=== PATIENT | male | born 1985 | race African-American/Black ===

== ENCOUNTER 2018-10-07 09:48 | Emergency (ER) | payer SELFPAY ==
[~2018-10-07] VITALS: Ht 180.3 cm; Wt 86.2 kg
--- NOTE | 2018-10-07 10:14 | PHYS DOC ---
Past History Past Medical History: No Pertinent History Past Surgical History: No Surgical History Smoking: Cigarettes, Greater than 1 pack/day Drug Use: None Adult General Chief Complaint Chief Complaint: ACCIDENTAL INGESTION HPI HPI Patient is a 33-year-old male presents after "accidentally" drinking what he believes may have been radiator fluid. He thought it was water. He also took some unknown medicines. History is limited from the patient due to his sleepiness. He denies this being a suicide attempt. He is uncertain as to what these medicines are, when he took them, or who they belong to. Nothing makes symptoms better or worse. No chest pain or difficulty breathing, no pain with urination. No flank pain[] Review of Systems Review of Systems Constitutional: Denies fever or chills [] Eyes: Denies change in visual acuity, redness, or eye pain [] HENT: Denies nasal congestion or sore throat [] Respiratory: Denies cough or shortness of breath [] Cardiovascular: No chest pain or palpitations[] GI: Denies abdominal pain, nausea, vomiting, bloody stools or diarrhea [] : Denies dysuria or hematuria [] Musculoskeletal: Denies back pain or joint pain [] Integument: Denies rash or skin lesions [] Neurologic: Denies headache, focal weakness or sensory changes [] Endocrine: Denies polyuria or polydipsia [] All other systems were reviewed and found to be within normal limits, except as documented in this note. Physical Exam Physical Exam Constitutional: Well developed, well nourished, no acute distress, non-toxic appearance. [] HENT: Normocephalic, atraumatic, bilateral external ears normal, oropharynx moist, no oral exudates, nose normal. [] Eyes: PERRLA, EOMI, conjunctiva normal, no discharge. [] Neck: Normal range of motion, no tenderness, supple, no stridor. [] Cardiovascular:Heart rate regular rhythm, no murmur [] Lungs & Thorax: Bilateral breath sounds clear to auscultation [] Abdomen: Bowel sounds normal, soft, no tenderness, no masses, no pulsatile masses. [] Skin: Warm, dry, no erythema, no rash. [] Back: No tenderness, no CVA tenderness. [] Extremities: No tenderness, no cyanosis, no clubbing, ROM intact, no edema. [] Neurologic: Somnolent, normal motor function, normal sensory function, no focal deficits noted. [] Psychologic: Flat affect[] EKG EKG [] Radiology/Procedures Radiology/Procedures [] Course & Med Decision Making Course & Med Decision Making Pertinent Labs and Imaging studies reviewed. (See chart for details) ED course: Patient arrived, was placed in bed, and tolerated exam well. He became or weight during the emergency department stay. He was able to provide a urine sample which did not fluoresce under Wood's lamp. Received a phone call from the emergency physician at [facility] who saw the patient yesterday. Patient was brought in by EMS after being found on the ground at his sister's place. He perked up with some Narcan however was initially nonverbal but responding appropriately with head shaking and nodding. He had CT scan of head C-spine chest abdomen and pelvis that were all negative. Urine toxicology screen by report showed cocaine. His laboratory testing was essentially normal aside from a creatinine of 1.4 which on their review of records showed that was where his baseline was. He was initially admitted for further evaluation and treatment but left AGAINST MEDICAL ADVICE from [facility] at 1640 yesterday. After receiving this information, Patient continued to deny any suicidal or homicidal ideation. He requested to leave AGAINST MEDICAL ADVICE. He was informed of the risks of leaving to include or permanent disability. He was able to state the risks in his own words. He appears able to make an informed decision. He left AGAINST MEDICAL ADVICE. Medical decision making: Patient with substance abuse issues by history, no evidence of self-harm or harm of others ideation or attempt. No evidence of r adiator fluid ingestion. Patient appears able to make an informed decision and so was released as noted above.[] Dragon Disclaimer Dragon Disclaimer This electronic medical record was generated, in whole or in part, using a voice recognition dictation system. Departure Departure: Impression: Primary Impression: Drug abuse Disposition: 07 AGAINST MEDICAL ADVICE Condition: IMPROVED Referrals: PCP,GALEN (PCP) YUE ARZATE DO Oct 07, 2018 10:14
[2018-10-07] MEDS ORDERED: MVI, ADULT NO.4 WITH VIT K 10 ML, FOLIC ACID SYRINGE for ER 1 MG, THIAMINE INJ 100 MG i... IV SCH ×4 (10:15)
[2018-10-07 10:24] VITALS: BP 140/87
[2018-10-07 10:29] LABS: BASO # 0.1 x10^3/uL (0.0-0.2); BASO % 2 % (0-3); EOS # 0.1 x10^3/uL (0.0-0.7); EOS % 1 % (0-3); HEMOGLOBIN 14.1 g/dL (13.0-17.5); LYMPH # 1.7 x10^3/uL (1.0-4.8); LYMPH % 37 % (24-48); MEAN CORPUSCULAR HEMOGLOBIN 26 pg (25-35); MEAN CORPUSCULAR HGB CONC 34 g/dL (31-37); MEAN CORPUSCULAR VOLUME 76 fL (79-100); MONO # 0.6 x10^3/uL (0.0-1.1); MONO % 13 % (0-9); NEUT # 2.2 x10^3uL (1.8-7.7); NEUT % 47 % (31-73); PLATELET COUNT 246 x10^3/uL (140-400); RED BLOOD COUNT 5.42 x10^6/uL (4.30-5.70); RED CELL DISTRIBUTION WIDTH 13.5 % (11.5-14.5); WHITE BLOOD COUNT 4.7 x10^3/uL (4.0-11.0)
--- NOTE | 2018-10-07 10:37 | RAD ---
PORTABLE CHEST 1V History: Intoxication. Accidental ingestion of antifreeze. Comparison with March 01, 2009 image but report not available. Findings: Heart size is enlarged. No pneumothorax or effusion. Mild basilar markings may represent atelectasis. Bones appear intact. IMPRESSION: Mild markings in both lung bases. Likely represents atelectasis. Mild infiltrate or aspiration is difficult to exclude. Consider short-term follow-up PA and lateral chest x-ray. Electronically signed by: Tiago Gustafson MD (10/07/2018 10:34 AM) [id number]
[2018-10-07 10:41] LABS: ALBUMIN 3.3 g/dL (3.4-5.0); CALCIUM 9.4 mg/dL (8.5-10.1); CREATININE 1.4 mg/dL (0.7-1.3); DIRECT BILIRUBIN 0.1 mg/dL (0.0-0.2); GFR 70.6; MAGNESIUM 1.8 mg/dL (1.8-2.4); POTASSIUM 3.8 mmol/L (3.5-5.1); TOTAL BILIRUBIN 0.4 mg/dL (0.2-1.0); TOTAL PROTEIN 7.4 g/dL (6.4-8.2)
[2018-10-07 10:46] LABS: ACETAMIN < 2.0 mcg/mL (10-30); ETHANOL < 10 mg/dL (0-10)
[2018-10-07 10:53] LABS: AMPHETAMINE/METHAMPHETAMINE NEG (NEG); BARBITURATES NEG (NEG); BENZODIAZEPINES NEG (NEG); CANNABINOIDS NEG (NEG); COCAINE POS (NEG); METHADONE NEG (NEG); OPIATES NEG (NEG); PHENCYCLIDINE NEG (NEG)
[2018-10-07 11:10] LABS: AMORPHOUS SEDIMENT,UR PRESENT /HPF; BACTERIA,URINE FEW /HPF (0-FEW); BILIRUBIN,URINE NEG (NEG); CLARITY,URINE HAZY; COLOR,URINE YELLOW; GLUCOSE,URINE NEG (NEG); NITRITE,URINE NEG (NEG); RBC,URINE 0 /HPF (0-2); SQUAMOUS EPITHELIAL CELL,UR OCC /LPF; UROBILINOGEN,URINE 1 mg/dL (0.2 mg/dL)
--- NOTE | 2018-10-07 12:01 | EKG ---
[address] [address] Test Date: 2018-10-07 Test Time: 10:24:43 Pat Name: YUMIKO BEDOYA Department: Room: Gender: M [employer] L[employer] Rep[employer]r: : 1985 Requested By: YUE ARZATE Order Number: [id number] Reading MD: Measurements Intervals [place] Rate: 69 P: 34 CA: 128 QRS: 73 QRSD: 82 T: 29 QT: 340 QTc: 366 Interpretive Statements SINUS RHYTHM OTHERWISE NORMAL ECG RI6.01 No previous ECG available for comparison
== END 2018-10-07 10:54 | disposition left against medical advice (07) ==
LOC: ER 09:48
DX: F14.10 Cocaine abuse, uncomplicated (principal); R40.0 Somnolence; F17.210 Nicotine dependence, cigarettes, uncomplicated
CPT/HCPCS: 36415; 71045; 80048; 80076; 80307; 80329; 81001; 83735; 83930; 85025; 85610; 85730; 87086; 93005; 99285; G0480; 82003

== ENCOUNTER 2020-01-09 19:42 | Emergency (ER) | payer SELFPAY ==
[~2020-01-09] VITALS: Ht 180.3 cm; Wt 85.0 kg
--- NOTE | 2020-01-09 20:05 | PHYS DOC ---
Past History Past Medical History: No Pertinent History Past Surgical History: No Surgical History Smoking: Cigarettes, Greater than 1 pack/day Alcohol Use: None Drug Use: None General Adult EDM: Chief Complaint: FINGER INJURY HPI: HPI: The history was obtained from the patient. Patient is a 34-year-old right- handed male with no reported PMH who presents with a chief complaint of pain and swelling to the right third finger. Patient states he noticed pain approximately 6 hours prior to arrival. He states he has noted progressive swelling and redness to the finger. He states it is painful to move. He states it is swollen. He does note an openly draining wound to the dorsum of the PIP joint. Denies any trauma or injury. Denies any IV drug use. Denies any recent antibiotics. Denies fevers. States he thinks the redness is tracking to his hand and wrist. Denies any history of skin infection or abscess. 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 He was not wearing gloves. However he denies any known injury or trauma. No other complaints. Review of Systems: Review of Systems: Constitutional: Denies fever or chills Eyes: Denies change in visual acuity HENT: Denies nasal congestion or sore throat Respiratory: Denies cough or shortness of breath Cardiovascular: Denies chest pain or edema GI: Denies abdominal pain, nausea, vomiting, bloody stools or diarrhea : Denies dysuria Musculoskeletal: Positive for hand pain Integument: Positive for rash Neurologic: Denies headache, focal weakness or sensory changes Endocrine: Denies polyuria or polydipsia Lymphatic: Denies swollen glands Psychiatric: Denies depression or anxiety Heart Score: Risk Factors: Risk Factors: DM, Current or recent (<one month) smoker, HTN, HLP, family history of CAD, obesity. Risk Scores: Score 0 - 3: 2.5% MACE over next 6 weeks - Discharge Home Score 4 - 6: 20.3% MACE over next 6 weeks - Admit for Clinical Observation Score 7 - 10: 72.7% MACE over next 6 weeks - Early Invasive Strategies Allergies: Allergies: Allergies Coded Allergies Type Severity Reaction Last Updated Verified No Known Drug Allergies 10/07/18 No Physical Exam: PE: Constitutional: Well developed, well nourished, no acute distress, non-toxic appearance. [] HENT: Normocephalic, atraumatic, bilateral external ears normal, oropharynx moist, no oral exudates, nose normal. [] Eyes: PERRLA, EOMI, conjunctiva normal, no discharge. [] Neck: Normal range of motion, no tenderness, supple, no stridor. [] Cardiovascular:Heart rate regular rhythm, no murmur [] Lungs & Thorax: Bilateral breath sounds clear to auscultation [] Abdomen: soft, no tenderness, no masses, no pulsatile masses. [] Skin: Warm, dry, no erythema, no rash. [] Back: No tenderness, no CVA tenderness. [] Extremities: Right third digit with fusiform swelling noted. 2 mm openly draining wound noted to the dorsal aspect of the PIP joint. Overlying erythema appreciated. Pain with passive extension. Erythema appears to be streaking to the dorsum of the hand overlying the right wrist slightly. Sensation intact in all nerve distributions. 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 Neurologic: Alert and oriented X 3, normal motor function, normal sensory function, no focal deficits noted. [] Psychologic: Affect normal, judgement normal, mood normal. [] Current Patient Data: Labs: Laboratory Tests Test 01/09/20 20:09 White Blood Count 8.1 x10^3/uL Red Blood Count 4.93 x10^6/uL Hemoglobin 13.3 g/dL Hematocrit 38.7 % Mean Corpuscular Volume 79 fL Mean Corpuscular Hemoglobin 27 pg Mean Corpuscular Hemoglobin Concent 34 g/dL Red Cell Distribution Width 14.3 % Platelet Count 227 x10^3/uL Neutrophils (%) (Auto) 55 % Lymphocytes (%) (Auto) 36 % Monocytes (%) (Auto) 7 % Eosinophils (%) (Auto) 1 % Basophils (%) (Auto) 1 % Neutrophils # (Auto) 4.5 x10^3uL Lymphocytes # (Auto) 2.9 x10^3/uL Monocytes # (Auto) 0.5 x10^3/uL Eosinophils # (Auto) 0.1 x10^3/uL Basophils # (Auto) 0.1 x10^3/uL Sodium Level 140 mmol/L Potassium Level 3.8 mmol/L Chloride Level 105 mmol/L Carbon Dioxide Level 26 mmol/L Anion Gap 9 Blood Urea Nitrogen 17 mg/dL Creatinine 1.5 mg/dL Estimated GFR (Cockcroft-Gault) 64.8 Glucose Level 96 mg/dL Calcium Level 9.3 mg/dL Current Medications Medications (Trade) Dose Ordered Sig/Christopher Route PRN Reason Start Time Stop Time Status Last Admin Dose Admin Cefazolin Sodium 1 gm/Sodium Chloride 50 ml @ 100 mls/hr 1X ONCE IV 01/09/20 20:00 01/09/20 20:29 DC 01/09/20 20:00 Trimethoprim/ Sulfamethoxazole 20 ml/Dextrose 520 ml @ 346.667 mls/hr 1X ONCE IV 01/09/20 20:30 01/09/20 21:59 DC 01/09/20 20:54 Iohexol (Omnipaque 300 Mg/ml) 75 ml 1X ONCE IV 01/09/20 20:30 01/09/20 20:35 DC 01/09/20 21:05 Sodium Chloride 50 ml @ As Directed STK-MED ONCE .ROUTE 01/09/20 20:49 01/09/20 20:50 DC Cefazolin Sodium (Ancef) 1 gm STK-MED ONCE .ROUTE 01/09/20 20:50 01/09/20 20:50 DC Vital Signs: Vital Signs Date Time Temp Pulse Resp B/P (MAP) Pulse Ox O2 Delivery O2 Flow Rate FiO2 01/09/20 19:50 97.9 81 16 139/85 (103) 99 Room Air EKG: EKG: [] Radiology/Procedures: Radiology/Procedures: [address] [address] IMAGING REPORT Signed PATIENT: YUMIKO BEDOYA BACCOUNT: [id number] : 1985 LOCATION: ER AGE: 34 SEX: M EXAM STATUS: REG ER ORD. PHYSICIAN: ILIA MARIA DO REASON: Rt 4rd digit redness, swelilng extending to dorsum of hand PROCEDURE: CT UPPER EXTREMTY W/CONTRST RT CT UPPER EXTREMTY W/CONTRST RT History: Reason: Rt 4rd digit redness, swelilng extending to dorsum of hand / Spl. Instructions: / History: Comparison: None. Technique: CT right upper extremity with contrast. Coronal and sagittal reconstructions were performed. Exposure: One or more of the following individualized dose reduction techniques were utilized for this examination: 1. Automated exposure control 2. Adjustment of the mA and/or kV according to patient size 3. Use of iterative reconstruction technique. Findings: Fourth digit subcutaneous edema. Mild dorsal hand subcutaneous edema. No abscess. There is a small cutaneous lesion overlying the fourth proximal phalanx. Acute to subacute third distal phalanx base fracture. Patent vasculature. Myotendinous structures are grossly intact. Impression: 1. Fourth digit dorsal soft tissue swelling extending into the dorsal aspect of the. No evidence of abscess. If persistent clinical concern, MRI can better evaluate. 2. Small cutaneous lesion overlying the dorsal fourth proximal phalanx. Recommend clinical correlation. 3. Acute to subacute third distal phalanx base fracture. Electronically signed by: Trenton Xiong DO (01/09/2020 10:14 PM) [facility] DICTATED AND SIGNED BY: TRENTON XIONG DO DATE: 01/09/202213 CC: PCP,NO; ILIA MARIA DO ~ [] Course & Med Decision Making: Course & Med Decision Making Pertinent Labs and Imaging studies reviewed. (See chart for details) [] Patient is a 34-year-old male who presents with chief complaint of swelling and redness to the right third middle finger extending over his right hand. He states he is right-handed visual. Denies any trauma or known injury. Clinical ly I am concerned for cellulitis. CT imaging reveals cellulitis without signs of abscess. Given the patient's symptoms over the dorsal aspect of the right hand is not consistent with flexor tenosynovitis. He was given IV Ancef and Bactrim. I do feel he would benefit from hospitalization for IV antibiotics given that this infection appears to be tracking proximally and involves his dominant hand. Patient is agreeable to this. Patient will be hospitalized [facility] where orthopedic surgery is available if surgical intervention is needed. Marcela Disclaimer: Marcela Disclaimer: This electronic medical record was generated, in whole or in part, using a voice recognition dictation system. Departure Departure: Impression: Primary Impression: Cellulitis of right hand Disposition: XFER SHT-TRM HOSP Condition: STABLE Referrals: PCP,NO (PCP) Justification of Admission: Justification of Admission: Justification of Admission Dx: Yes Cellulitis: Cellulitis ILIA MARIA DO Jan 09, 2020 20:05
[2020-01-09] MEDS ORDERED: IOHEXOL 300 MG/ML 75 ML VIAL. IV ONE (20:30)
[2020-01-09] MEDS ORDERED: SULFAMETHOXAZOLE/TRIMETHOPRIM 20 ML in IV DEXTROSE 5% 500 ML IV ONE (20:30)
[2020-01-09] MEDS ORDERED: IV NORMAL SALINE 50ML 50 ML ONE (20:49)
[2020-01-09] MEDS ORDERED: ceFAZolin SODIUM 1 GM VIAL ONE (20:50)
[2020-01-09 20:54] LABS: BASO # 0.1 x10^3/uL (0.0-0.2); BASO % 1 % (0-3); EOS # 0.1 x10^3/uL (0.0-0.7); EOS % 1 % (0-3); HEMATOCRIT 38.7 % (39.0-53.0); HEMOGLOBIN 13.3 g/dL (13.0-17.5); LYMPH # 2.9 x10^3/uL (1.0-4.8); LYMPH % 36 % (24-48); MEAN CORPUSCULAR HEMOGLOBIN 27 pg (25-35); MEAN CORPUSCULAR HGB CONC 34 g/dL (31-37); MEAN CORPUSCULAR VOLUME 79 fL (79-100); MONO # 0.5 x10^3/uL (0.0-1.1); MONO % 7 % (0-9); NEUT # 4.5 x10^3uL (1.8-7.7); NEUT % 55 % (31-73); PLATELET COUNT 227 x10^3/uL (140-400); RED BLOOD COUNT 4.93 x10^6/uL (4.30-5.70); RED CELL DISTRIBUTION WIDTH 14.3 % (11.5-14.5); WHITE BLOOD COUNT 8.1 x10^3/uL (4.0-11.0)
[2020-01-09 20:55] LABS: CALCIUM 9.3 mg/dL (8.5-10.1); CREATININE 1.5 mg/dL (0.7-1.3); GFR 64.8; POTASSIUM 3.8 mmol/L (3.5-5.1)
--- NOTE | 2020-01-09 22:17 | RAD ---
CT UPPER EXTREMTY W/CONTRST RT History: Reason: Rt 4rd digit redness, swelilng extending to dorsum of hand / Spl. Instructions: / History: Comparison: None. Technique: CT right upper extremity with contrast. Coronal and sagittal reconstructions were performed. Exposure: One or more of the following individualized dose reduction techniques were utilized for this examination: 1. Automated exposure control 2. Adjustment of the mA and/or kV according to patient size 3. Use of iterative reconstruction technique. Findings: Fourth digit subcutaneous edema. Mild dorsal hand subcutaneous edema. No abscess. There is a small cutaneous lesion overlying the fourth proximal phalanx. Acute to subacute third distal phalanx base fracture. Patent vasculature. Myotendinous structures are grossly intact. Impression: 1. Fourth digit dorsal soft tissue swelling extending into the dorsal aspect of the. No evidence of abscess. If persistent clinical concern, MRI can better evaluate. 2. Small cutaneous lesion overlying the dorsal fourth proximal phalanx. Recommend clinical correlation. 3. Acute to subacute third distal phalanx base fracture. Electronically signed by: Trenton Xiong DO (01/09/2020 10:14 PM) [facility]
[2020-01-09] MEDS ORDERED: HYDROcodone/APAP 10/325 1 TAB TABLET PO ONE (22:45)
[2020-01-09] MEDS ORDERED: DIPH,PERTUSS(ACELL),TET VAC/PF 0.5 ML SYRINGE. VAX IM ONE (23:00)
[2020-01-09 23:58] VITALS: BP 132/65
== END 2020-01-10 00:01 | disposition short-term general hospital (02) ==
LOC: ER 19:42
DX: L03.113 Cellulitis of right upper limb (principal); F17.210 Nicotine dependence, cigarettes, uncomplicated
CPT/HCPCS: 36415; 73201; 80048; 85025; 90471; 90715; 96365; 96366; 96367; 99285; J0690; J3490; Q9967

== ENCOUNTER 2020-06-17 03:21 | Emergency (ER) | payer SELFPAY ==
[~2020-06-17] VITALS: Ht 180.3 cm; Wt 85.0 kg
[2020-06-17 03:21] VITALS: BP 126/90
[2020-06-17] MEDS ORDERED: IBUPROFEN 600 MG TABLET. PO ONE (03:30)
[2020-06-17] MEDS ORDERED: ACETAMINOPHEN 500 MG TABLET PO ONE (03:30)
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
--- NOTE | 2020-06-17 04:10 | RAD ---
Study: XR SHOULDER_RIGHT 2+ VIEWS Indication: Fall. Comparison: None. Findings: No acute fracture. Acromioclavicular and glenohumeral joint alignment is anatomic. Normal acromiohume ral interval. The visualized ribs are grossly intact. Impression: No acute fracture or traumatic malalignment. Electronically signed by: MAHAD CALABRESE MD (06/17/2020 4:07 AM) [facility]
--- NOTE | 2020-06-17 04:10 | RAD ---
Study: XR ELBOW COMPLETE_RIGHT 3+ VIEWS Indication: Fall. Comparison: None. Findings: Alignment is maintained. No acute fracture. No elbow joint effusion. Impression: No displaced fracture or malalignment. No elbow joint effusion to suggest occult osseous injury. Electronically signed by: MAHAD CALABRESE MD (06/17/2020 4:08 AM) [facility]
== END 2020-06-17 04:10 | disposition left against medical advice (07) ==
LOC: ER 03:21
DX: M25.511 Pain in right shoulder (principal); M25.521 Pain in right elbow; F17.210 Nicotine dependence, cigarettes, uncomplicated
CPT/HCPCS: 73030; 73080; 99284